=== PATIENT | male | born 1965 | race Caucasian/White ===

== ENCOUNTER 2020-07-05 15:52 | Emergency (ER) | payer OTHER ==
[2020-07-05] MEDS ORDERED: PREDNISONE 20MG20 MG PO (18:13)
[2020-07-05] MEDS ORDERED: CYCLOBENZAPRINE10 MG PO (18:13)
== END 2020-07-05 18:51 | disposition home or self-care (01) ==
LOC: FER 15:52
DX: M54.31 Sciatica, right side (principal); Z88.8 Allergy status to other drugs, medicaments and biological substances
CPT/HCPCS: 96372; 99283; J1100; J1885